=== PATIENT | female | born 1990 | race African-American/Black ===

== ENCOUNTER 2024-03-04 19:39 | Emergency (ER) | payer OTHER, SELFPAY ==
[2024-03-04] MEDS ORDERED: Ibuprofen 200 MG TAB ONE (23:16)
== END 2024-03-04 23:40 | disposition home or self-care (01) ==
LOC: CSHERS 19:39
DX: S93.402A Sprain of unspecified ligament of left ankle, initial encounter (principal); Z55.0 Illiteracy and low-level literacy; W10.9XXA Fall (on) (from) unspecified stairs and steps, initial encounter
CPT/HCPCS: 29515